=== PATIENT | male | born 1950 | race Caucasian/White ===

== ENCOUNTER 2021-01-13 12:26 | Outpatient (RCR) | payer MEDICARE, BC ==
[2020-11-14 10:35] LABS: BUN/CREATININE RATIO 13; CREATININE SERUM 1.05 MG/DL (0.60-1.30); GFR ESTIMATED > 60
== END 2021-01-16 | disposition home or self-care (01) ==
LOC: ONC 12:26
PROVIDERS: ATTEND Radiology Radiation Oncology
DX: C61 Malignant neoplasm of prostate (principal); J45.909 Unspecified asthma, uncomplicated; E78.00 Pure hypercholesterolemia, unspecified; M19.90 Unspecified osteoarthritis, unspecified site; Z98.890 Other specified postprocedural states; Z80.3 Family history of malignant neoplasm of breast; Z79.51 Long term (current) use of inhaled steroids
CPT/HCPCS: 77300; 77301; 77334; 77336; 77338; 77385; 82565; 84520; 99204

== ENCOUNTER 2021-03-09 09:25 | Outpatient (RCR) | payer MEDICARE, BC | END 2021-04-17 | disposition home or self-care (01) | LOC: ONC 09:25 | PROVIDERS: ATTEND Radiology Radiation Oncology | DX: Z51.0 Encounter for antineoplastic radiation therapy (principal); C61 Malignant neoplasm of prostate; J45.909 Unspecified asthma, uncomplicated; E78.00 Pure hypercholesterolemia, unspecified; Z80.3 Family history of malignant neoplasm of breast; Z87.891 Personal history of nicotine dependence | CPT/HCPCS: 77385; G0463; 77336; 84153; 99213 ==

== ENCOUNTER 2021-09-14 09:12 | Outpatient (RCR) | payer MEDICARE, BC | END 2021-10-12 | disposition home or self-care (01) | LOC: ONC 09:12 | PROVIDERS: ATTEND Radiology Radiation Oncology | DX: C61 Malignant neoplasm of prostate (principal); J45.909 Unspecified asthma, uncomplicated; E78.00 Pure hypercholesterolemia, unspecified; Z80.3 Family history of malignant neoplasm of breast; Z87.891 Personal history of nicotine dependence | CPT/HCPCS: 84153; G0463; 36415; 99213 ==